=== PATIENT | male | born 1965 | race Caucasian/White ===

== ENCOUNTER 2020-11-03 11:20 | Emergency (ER) | payer OTHER ==
[~2020-11-03] VITALS: Ht 170.2 cm; Wt 79.4 kg
[2020-11-03] MEDS ORDERED: ASPIRIN 81 MG CHEW TAB PO ONE (11:30)
[2020-11-03 12:05] LABS: BASOPHILS # (AUTO) 0.1 (0.0-0.1); BASOPHILS % 0.7 % (0.0-1.0); EOSINOPHILS # (AUTO) 0.1 (0.0-0.4); EOSINOPHILS % 1.2 % (0.0-6.0); HEMATOCRIT 50.9 % (38.2-49.6); HEMOGLOBIN 17.4 g/dL (14.0-18.0); LYMPHOCYTES # (AUTO) 1.8 (1.0-3.2); LYMPHOCYTES % 25.3 % (18.0-39.1); MEAN CORPUSCULAR HEMOGLOBIN 30.3 pg (28-32); MEAN CORPUSCULAR HGB CONC 34.2 g/dL (31-35); MEAN CORPUSCULAR VOLUME 88.5 fL (81-99); MONOCYTES # (AUTO) 0.7 (0.2-0.8); MONOCYTES % 9.5 % (4.4-11.3); NEUTROPHILS # (AUTO) 4.5 (2.1-6.9); NEUTROPHILS % 62.6 % (38.7-80.0); PLATELET COUNT 245 x10e3/uL (140-360); RED BLOOD COUNT 5.75 x10e6/uL (4.3-5.7); RED CELL DISTRIBUTION WIDTH 12.1 % (11.7-14.4)
[2020-11-03 12:16] LABS: AMPHETAMINES SCREEN,URINE NEGATIVE (NEGATIVE); BENZODIAZEPINES SCREEN,URINE NEGATIVE (NEGATIVE); PHENCYCLIDINE SCREEN,URINE NEGATIVE (NEGATIVE)
[2020-11-03 12:24] LABS: ALBUMIN 3.4 g/dL (3.5-5.0); ALBUMIN/GLOBULIN RATIO 0.8 (0.8-2.0); ANION GAP 14.6 mmol/L (8-16); CALCIUM 9.3 mg/dL (8.4-10.2); CREATININE, SERUM 1.21 mg/dL (0.72-1.25); POTASSIUM 3.6 mmol/L (3.5-5.1)
[2020-11-03] MEDS ORDERED: SODIUM CHLORIDE 0.9% 50ML 50 ML ONE ×2 (12:47→13:42)
[2020-11-03] MEDS ORDERED: IOPAMIDOL 370 MG/ML 200 ML INFUS..BTL INJ ONE ×2 (12:47→13:43)
[2020-11-03] MEDS ORDERED: LEVOFLOXACIN750 MG PO (15:32)
[2020-11-03] MEDS ORDERED: PREDNISONE20 MG PO (15:32)
== END 2020-11-03 16:04 | disposition home or self-care (01) ==
LOC: ER 11:28
DX: R06.02 Shortness of breath (principal); J18.9 Pneumonia, unspecified organism; R42 Dizziness and giddiness; E78.5 Hyperlipidemia, unspecified
CPT/HCPCS: 36415; 71045; 71260; 80053; 80307; 82550; 82553; 83880; 84484; 85025; 93005; 99284; Q9967; U0002

== ENCOUNTER 2020-12-08 10:58 | Emergency (ER) | payer OTHER ==
[~2020-12-08] VITALS: Ht 170.2 cm; Wt 79.4 kg
[~2020-12-08 10:58] MED LIST: LEVOFLOXACIN750 MG PO; PREDNISONE20 MG PO
[2020-12-08] MEDS ORDERED: KETOROLAC TROMETHAMINE 30 MG/ML VIAL IV STA (11:09)
[2020-12-08] MEDS ORDERED: DIPHENHYDRAMINE HCL INJ 50 MG/ML VIAL IV ONE (11:15)
[2020-12-08] MEDS ORDERED: METOCLOPRAMIDE HCL 10 MG/2ML VIAL IV ONE (11:15)
[2020-12-08] MEDS ORDERED: SODIUM CHLORIDE 0.9% 1000ML 1,000 ML IV SCH (11:15)
[2020-12-08] MEDS ORDERED: FIORICET 50-301 EACH PO (11:20)
[2020-12-08] MEDS ORDERED: IBUPROFEN600 MG PO (11:20)
[2020-12-08 13:35] VITALS: BP 133/75
== END 2020-12-08 13:50 | disposition home or self-care (01) ==
LOC: ER 11:04
DX: G43.909 Migraine, unspecified, not intractable, without status migrainosus (principal)
CPT/HCPCS: 70450; 99283; J1200; J1885; J2765; J7030

== ENCOUNTER 2021-04-05 10:11 | Emergency (ER) | payer OTHER ==
[~2021-04-05] VITALS: Ht 170.2 cm; Wt 79.4 kg
[~2021-04-05 10:11] MED LIST changes: +FIORICET 50-301 EACH PO; +IBUPROFEN600 MG PO
== END 2021-04-05 12:35 | disposition left against medical advice (07) ==
LOC: ER 11:30
DX: R53.83 Other fatigue (principal)